=== PATIENT | male | born 1975 | race Caucasian/White ===

== ENCOUNTER 2021-02-24 12:58 | Emergency (ER) | payer MEDICAID ==
[~2021-02-24] VITALS: Ht 175.3 cm; Wt 86.5 kg
[2021-02-24 13:02] VITALS: BP 118/82
--- NOTE | 2021-02-24 13:19 | NUR ---
PT WALKED BACK FROM TRIAGE WITH CHIEF COMPLAINT OF LEFT DENTAL PAIN, RECENTLY FINISHED ABX, SEEN BY DENTIST.
--- NOTE | 2021-02-24 13:53 | NUR ---
DC INSTRUCTIONS REVIEWED
== END 2021-02-24 13:59 | disposition home or self-care (01) ==
LOC: ED 13:35
DX: K02.9 Dental caries, unspecified (principal); Z87.891 Personal history of nicotine dependence
CPT/HCPCS: 99283